=== PATIENT | female | born 1975 | race Caucasian/White ===

== ENCOUNTER 2019-09-03 16:37 | Inpatient (IN) | payer OTHER ==
[~2019-09-03] VITALS: Ht 160 cm; Wt 106.0 kg
--- NOTE | 2019-09-03 16:50 | NUR ---
PATIENT BROUGHT IN BY [facility] WITH CHIEF COMPLAINT OF WHOLE BODY SWELLING WITH RIGHT FLANK PAIN STARTING THIS MORNING. THE PATIENT IS ALERT, ORIENTED, WARM.
[2019-09-03] MEDS ORDERED: PLEASE ENTER ALLERGIES MC SCH (17:00)
[2019-09-03] MEDS ORDERED: KETOROLAC 30 MG/1 ML IVPush ONE (17:00)
[2019-09-03] MEDS ORDERED: ONDANSETRON 2MG/ML, 2ML IVPush ONE (17:00)
[2019-09-03 17:14] LABS: BASOPHILS # (AUTO) 0.11 x10^3/uL (0-0.1); BASOPHILS % (AUTO) 1 % (0-1); EOSINOPHILS # (AUTO) 0.16 x10^3/uL (0-0.4); EOSINOPHILS % (AUTO) 1 % (1-7); LYMPHOCYTES % (AUTO) 18 % (22-44); MD NO; MEAN CORPUSCULAR HEMOGLOBIN 30.3 pg (27.0-34.8); MEAN CORPUSCULAR HGB CONC 32.6 g/dL (32.4-35.8); MEAN CORPUSCULAR VOLUME 93.1 fL (80-100); MEAN PLATELET VOLUME 7.3 fL (7.4-10.4); MONOCYTES # (AUTO) 0.52 x10^3/uL (0.2-0.8); MONOCYTES % (AUTO) 3 % (2-9); NEUTROPHILS # (AUTO) 13.73 x10^3/uL (1.8-6.8); NEUTROPHILS % (AUTO) 78 % (42-75); PLATELET COUNT 378 x10^3/uL (130-400); RED BLOOD COUNT 5.71 x10^6/uL (3.82-5.3); RED CELL DISTRIBUTION WIDTH 13.2 % (9.6-15.2)
[2019-09-03 17:26] LABS: ALANINE AMINOTRANSFERASE 21 U/L (12-78); ANION GAP 9 mmol/L (5-15); CALCIUM 9.1 mg/dL (8.5-10.1); CHLORIDE 110 mmol/L (98-107); CREATININE 1.15 mg/dL (0.55-1.02)
[2019-09-03 17:31] LABS: ALBUMIN 3.3 g/dL (3.4-5.0); ALKALINE PHOSPHATASE 68 U/L (45-117); BILIRUBIN,TOTAL 0.4 mg/dL (0.2-1.0); TOTAL PROTEIN 7.2 g/dL (6.4-8.2)
[2019-09-03] MEDS ORDERED: KETOROLAC 30 MG/1 ML ONE (17:39)
[2019-09-03] MEDS ORDERED: ONDANSETRON 2MG/ML, 2ML ONE ×2 (17:40→21:19)
[2019-09-03] MEDS ORDERED: PHENAZOPYRIDINE 200 MG TABLET ONE (17:52)
[2019-09-03] MEDS ORDERED: PHENAZOPYRIDINE 200 MG TABLET PO ONE (18:00)
[2019-09-03] MEDS ORDERED: SODIUM CHLORIDE 0.9% 1,000ML IVBOLUS ONE (18:00)
[2019-09-03 18:46] LABS: MICROSCOPIC AUTO
--- NOTE | 2019-09-03 18:46 | NUR ---
MEDICATION POSITIVE RELIEF OF DISCOMFORT. ASSISITED AMBULATION TO BATHROOM, NOW RESTING IN BED. CALL LIGHT IN REACH.
--- NOTE | 2019-09-03 18:53 | NUR ---
REPORT OF PT FROM BRISEIDA ROSE AND ASSUMING CARE OF PT AT THIS TIME.
[2019-09-03 19:04] LABS: CULTURE INDICATED? YES
[2019-09-03] MEDS ORDERED: CEFTRIAXONE PMX 1GM/50ML 50 ML ONE (19:10)
--- NOTE | 2019-09-03 19:19 | NUR ---
PT MEDICATED PER JAN. PT TO CT VIA [facility] AT THIS TIME;
[2019-09-03] MEDS ORDERED: CEFTRIAXONE PMX 1GM/50ML 50 ML IV ONE (19:30)
[2019-09-03] MEDS ORDERED: OMNIPAQUE 350 MG/ML, 100ML BOTTLE ONE (19:37)
[2019-09-03] MEDS ORDERED: MIDAZOLAM 1 MG/ML, 2ML ONE (20:36)
[2019-09-03] MEDS ORDERED: FENTANYL PF 250 MCG/5ML ONE (20:36)
--- NOTE | 2019-09-03 20:37 | NUR ---
ATTEMPTED TO START NG TUBE ON PT. PER OR, PT WILL HAVE NG TUBE PLACED IN OR. OR ATTENDANT AT BS TO TAKE PT TO OR AT THIS TIME.
[2019-09-03] MEDS ORDERED: BUPIVACAINE/PF 0.5% ONE (21:18)
[2019-09-03] MEDS ORDERED: DEXAMETHASONE 4 MG/ML, 1ML ONE (21:19)
[2019-09-03] MEDS ORDERED: ROCURONIUM 10MG/ML,5ML ONE (21:19)
[2019-09-03] MEDS ORDERED: PROPOFOL 10 MG/ML, 20ML ONE (21:19)
[2019-09-03] MEDS ORDERED: SUCCINYLCHOLINE 20 MG/ML, 10ML ONE (21:19)
[2019-09-03] MEDS ORDERED: SUGAMMADEX 200 MG/2 ML IVPush ONE (21:22)
[2019-09-03] MEDS ORDERED: BUPIVACAINE/PF 0.5% INFIL ONE (21:28)
[2019-09-03] MEDS ORDERED: HYDROmorphone 1 MG/ML, 1ML VIAL ONE (21:56)
[2019-09-03] MEDS ORDERED: FENTANYL PF 100 MCG/2ML ONE (21:56)
[2019-09-03] MEDS ORDERED: PROMETHAZINE 25 MG/ML, 1ML IV PRN (22:00)
[2019-09-03] MEDS ORDERED: hydrALAzine 20 MG/ML, 1ML IV PRN (22:00)
[2019-09-03] MEDS ORDERED: MEPERIDINE/PF 25MG/ML,1ML IVPush PRN (22:00)
[2019-09-03] MEDS ORDERED: LABETALOL 5MG/ML, 20ML IV PRN (22:00)
[2019-09-03] MEDS ORDERED: ONDANSETRON 2MG/ML, 2ML IV PRN (22:00)
[2019-09-03] MEDS: FENTANYL PF 100 MCG/2ML IV PRN ×2 (22:04→22:11)
[2019-09-03] MEDS: HYDROmorphone 2 MG/ML, 1ML IVPush PRN ×2 (22:07→22:14)
[2019-09-03 23:06] LABS: FREE T4 (FREE THYROXINE) 0.74 ng/dL (0.76-1.46)
[2019-09-03 23:15] VITALS: BP 127/84
[2019-09-03] MEDS ORDERED: LEVO50TA PO (23:15)
[2019-09-03] MEDS ORDERED: CLON0.1T22 PO (23:15)
[2019-09-03] MEDS ORDERED: SERT50TA PO (23:15)
[2019-09-03 23:24] LABS: AMPHETAMINE SCREEN, URINE Negative (Negative); BARBITURATE SCREEN, URINE Negative (Negative); BENZODIAZEPINE SCREEN, URINE Negative (Negative); CANNABINOID SCREEN, URINE Positive (Negative); COCAINE SCREEN, URINE Negative (Negative); METHADONE SCREEN, URINE Negative (Negative); OPIATE SCREEN, URINE Negative (Negative)
[2019-09-04] MEDS ORDERED: ACETAMINOPHEN 325 MG TABLET PO PRN
[2019-09-04] MEDS ORDERED: ONDANSETRON 2MG/ML, 2ML IVPush PRN
[2019-09-04] MEDS ORDERED: LABETALOL 5MG/ML, 20ML IVPush PRN
[2019-09-04] MEDS ORDERED: PROMETHAZINE 25 MG/ML, 1ML IM PRN
[2019-09-04] MEDS ORDERED: CEFTRIAXONE PMX 1GM/50ML 50 ML IV SCH
[2019-09-04 00:01] VITALS: BP 133/85
[2019-09-04] MEDS: PANTOPRAZOLE 40 MG IV IVPush SCH ×2 (01:09→08:01)
[2019-09-04] MEDS: CEFOTETAN PMX 2GM/50ML 50 ML IV SCH ×2 (01:09→13:29)
[2019-09-04] MEDS: morphine SULFATE 10 MG/ML, 1ML IVPush PRN ×2 (02:56→10:41)
[2019-09-04 04:01] VITALS: BP 123/79
[2019-09-04 04:50] LABS: BASOPHILS # (AUTO) 0.01 x10^3/uL (0-0.1); BASOPHILS % (AUTO) 0 % (0-1); EOSINOPHILS # (AUTO) 0.12 x10^3/uL (0-0.4); EOSINOPHILS % (AUTO) 1 % (1-7); LYMPHOCYTES # (AUTO) 1.41 x10^3/uL (1-3.4); LYMPHOCYTES % (AUTO) 8 % (22-44); MD NO; MEAN CORPUSCULAR HEMOGLOBIN 30.5 pg (27.0-34.8); MEAN CORPUSCULAR HGB CONC 32.6 g/dL (32.4-35.8); MEAN CORPUSCULAR VOLUME 93.4 fL (80-100); MEAN PLATELET VOLUME 7.2 fL (7.4-10.4); MONOCYTES # (AUTO) 0.17 x10^3/uL (0.2-0.8); MONOCYTES % (AUTO) 1 % (2-9); NEUTROPHILS # (AUTO) 15.05 x10^3/uL (1.8-6.8); NEUTROPHILS % (AUTO) 90 % (42-75); PLATELET COUNT 387 x10^3/uL (130-400); RED BLOOD COUNT 5.27 x10^6/uL (3.82-5.3); RED CELL DISTRIBUTION WIDTH 13.3 % (9.6-15.2)
[2019-09-04 05:00] LABS: ALBUMIN 2.8 g/dL (3.4-5.0); ANION GAP 9 mmol/L (5-15); CALCIUM 8.2 mg/dL (8.5-10.1); CHLORIDE 110 mmol/L (98-107)
[2019-09-04] MEDS ORDERED: ENALAPRILAT 1.25 MG/ML, 2ML IV PRN (05:00)
[2019-09-04] MEDS ORDERED: KETOROLAC 30 MG/1 ML IVPush PRN (05:00)
[2019-09-04] MEDS ORDERED: DIPHENHYDRAMINE 25 MG CAPSULE PO PRN (05:00)
[2019-09-04] MEDS ORDERED: hydrALAzine 20 MG/ML, 1ML IV PRN (05:00)
[2019-09-04] MEDS ORDERED: DIPHENHYDRAMINE 50 MG/ML, 1ML IVPush PRN (05:00)
[2019-09-04 05:05] LABS: ALANINE AMINOTRANSFERASE 23 U/L (12-78); ALKALINE PHOSPHATASE 55 U/L (45-117); BILIRUBIN,TOTAL 0.3 mg/dL (0.2-1.0); CREATININE 1.37 mg/dL (0.55-1.02); HEMOGLOBIN A1C 6.1 % (4.2-6.3); TOTAL PROTEIN 6.6 g/dL (6.4-8.2)
[2019-09-04 07:46] VITALS: BP 103/67
[2019-09-04] MEDS ORDERED: LACTATED RINGERS 1,000 ML IV ONE (09:00)
[2019-09-04] MEDS: LACTATED RINGERS 1,000 ML IV SCH ×2 (13:29→23:08)
[2019-09-04] MEDS: HEPARIN 5,000 UNITS/ML, 1ML SQ SCH ×2 (13:29→23:07)
[2019-09-04] MEDS: HYDROcodone/APAP 5/325 TABLET PO PRN ×3 (13:29→23:08)
[2019-09-04 14:04] VITALS: BP 134/74
[2019-09-04 19:51] VITALS: BP 129/74
[2019-09-04] MEDS: SERTRALINE 50MG TABLET PO SCH (23:07)
[2019-09-05 01:16] VITALS: BP 118/69
[2019-09-05] MEDS: CEFOTETAN PMX 2GM/50ML 50 ML IV SCH ×2 (01:16→12:51)
[2019-09-05 06:05] LABS: BASOPHILS # (AUTO) 0.02 x10^3/uL (0-0.1); BASOPHILS % (AUTO) 0 % (0-1); EOSINOPHILS # (AUTO) 0.15 x10^3/uL (0-0.4); EOSINOPHILS % (AUTO) 1 % (1-7); LYMPHOCYTES # (AUTO) 1.89 x10^3/uL (1-3.4); LYMPHOCYTES % (AUTO) 14 % (22-44); MD NO; MEAN CORPUSCULAR HEMOGLOBIN 30.9 pg (27.0-34.8); MEAN CORPUSCULAR HGB CONC 33.2 g/dL (32.4-35.8); MEAN PLATELET VOLUME 7.2 fL (7.4-10.4); MONOCYTES # (AUTO) 0.83 x10^3/uL (0.2-0.8); MONOCYTES % (AUTO) 6 % (2-9); NEUTROPHILS # (AUTO) 11.05 x10^3/uL (1.8-6.8); NEUTROPHILS % (AUTO) 79 % (42-75); PLATELET COUNT 332 x10^3/uL (130-400); RED BLOOD COUNT 3.84 x10^6/uL (3.82-5.3); RED CELL DISTRIBUTION WIDTH 13.7 % (9.6-15.2)
[2019-09-05 06:14] LABS: ANION GAP 7 mmol/L (5-15); CALCIUM 8.1 mg/dL (8.5-10.1); CHLORIDE 108 mmol/L (98-107)
[2019-09-05 06:17] LABS: CREATININE 1.11 mg/dL (0.55-1.02)
[2019-09-05 06:51] VITALS: BP 98/59
[2019-09-05] MEDS: HYDROcodone/APAP 5/325 TABLET PO PRN ×3 (08:33→21:20)
[2019-09-05] MEDS: LACTATED RINGERS 1,000 ML IV SCH ×2 (08:33→20:39)
[2019-09-05] MEDS: HEPARIN 5,000 UNITS/ML, 1ML SQ SCH ×3 (08:33→20:46)
[2019-09-05] MEDS: PANTOPRAZOLE 40 MG IV IVPush SCH (08:33)
[2019-09-05 13:10] VITALS: BP 118/71
[2019-09-05 14:13] VITALS: BP 117/69
[2019-09-05] MEDS ORDERED: PROPOFOL 10 MG/ML, 20ML ONE (15:28)
[2019-09-05 19:47] VITALS: BP 149/90
[2019-09-05] MEDS: SERTRALINE 50MG TABLET PO SCH (20:46)
[2019-09-06] MEDS: CEFOTETAN PMX 2GM/50ML 50 ML IV SCH ×2 (00:55→13:31)
[2019-09-06 00:59] VITALS: BP 127/81
[2019-09-06] MEDS: HYDROcodone/APAP 5/325 TABLET PO PRN ×3 (03:46→20:51)
[2019-09-06 04:56] VITALS: BP 133/84
[2019-09-06] MEDS: LACTATED RINGERS 1,000 ML IV SCH (05:00)
[2019-09-06 05:43] LABS: ANION GAP 4 mmol/L (5-15); CALCIUM 7.9 mg/dL (8.5-10.1); CHLORIDE 108 mmol/L (98-107)
[2019-09-06 05:45] LABS: BASOPHILS # (AUTO) 0.03 x10^3/uL (0-0.1); BASOPHILS % (AUTO) 0 % (0-1); EOSINOPHILS # (AUTO) 0.01 x10^3/uL (0-0.4); EOSINOPHILS % (AUTO) 0 % (1-7); LYMPHOCYTES # (AUTO) 2.95 x10^3/uL (1-3.4); LYMPHOCYTES % (AUTO) 28 % (22-44); MD NO; MEAN CORPUSCULAR HEMOGLOBIN 30.9 pg (27.0-34.8); MEAN CORPUSCULAR VOLUME 93.8 fL (80-100); MONOCYTES % (AUTO) 7 % (2-9); NEUTROPHILS # (AUTO) 6.75 x10^3/uL (1.8-6.8); NEUTROPHILS % (AUTO) 65 % (42-75); PLATELET COUNT 275 x10^3/uL (130-400); RED BLOOD COUNT 3.59 x10^6/uL (3.82-5.3); RED CELL DISTRIBUTION WIDTH 13.6 % (9.6-15.2)
[2019-09-06] MEDS: HEPARIN 5,000 UNITS/ML, 1ML SQ SCH ×3 (05:59→20:51)
[2019-09-06 07:13] VITALS: BP 129/77
[2019-09-06 08:15] VITALS: BP 126/81
[2019-09-06] MEDS: PANTOPRAZOLE 40 MG IV IVPush SCH (08:25)
[2019-09-06 13:48] VITALS: BP 107/69
[2019-09-06 19:34] VITALS: BP 128/81
[2019-09-06] MEDS: SERTRALINE 50MG TABLET PO SCH (20:51)
[2019-09-07] MEDS: CEFOTETAN PMX 2GM/50ML 50 ML IV SCH ×2 (01:23→13:30)
[2019-09-07 02:00] VITALS: BP 117/72
[2019-09-07] MEDS: HYDROcodone/APAP 5/325 TABLET PO PRN ×2 (03:42→09:28)
[2019-09-07] MEDS: HEPARIN 5,000 UNITS/ML, 1ML SQ SCH ×2 (04:47→13:30)
[2019-09-07 05:06] LABS: ANION GAP 6 mmol/L (5-15); CALCIUM 8.2 mg/dL (8.5-10.1); CHLORIDE 106 mmol/L (98-107); CREATININE 1.28 mg/dL (0.55-1.02)
[2019-09-07 05:12] LABS: BASOPHILS # (AUTO) 0.02 x10^3/uL (0-0.1); BASOPHILS % (AUTO) 0 % (0-1); EOSINOPHILS # (AUTO) 0.11 x10^3/uL (0-0.4); EOSINOPHILS % (AUTO) 1 % (1-7); LYMPHOCYTES # (AUTO) 3.15 x10^3/uL (1-3.4); LYMPHOCYTES % (AUTO) 37 % (22-44); MD NO; MEAN CORPUSCULAR HEMOGLOBIN 30.7 pg (27.0-34.8); MEAN CORPUSCULAR HGB CONC 33.3 g/dL (32.4-35.8); MEAN CORPUSCULAR VOLUME 92.1 fL (80-100); MEAN PLATELET VOLUME 6.9 fL (7.4-10.4); MONOCYTES # (AUTO) 0.41 x10^3/uL (0.2-0.8); MONOCYTES % (AUTO) 5 % (2-9); NEUTROPHILS # (AUTO) 4.87 x10^3/uL (1.8-6.8); NEUTROPHILS % (AUTO) 57 % (42-75); PLATELET COUNT 331 x10^3/uL (130-400); RED BLOOD COUNT 3.94 x10^6/uL (3.82-5.3); RED CELL DISTRIBUTION WIDTH 13.6 % (9.6-15.2)
[2019-09-07] MEDS ORDERED: PANTOPROZOLE 40MG TABLET PO SCH (06:00)
[2019-09-07 08:08] VITALS: BP 135/84
[2019-09-07 13:47] VITALS: BP 132/83
[2019-09-07] MEDS ORDERED: CIPR500T87 PO (16:20)
[2019-09-07] MEDS ORDERED: METR500T PO (16:20)
== END 2019-09-07 18:00 | disposition home or self-care (01) | DRG 853 ==
LOC: ED 19:37 → EDIP 20:29 → 4NE 22:45
PROVIDERS: ADMIT Surgery; ATTEND Surgery
PROC: 0WJG0ZZ Inspection of Peritoneal Cavity, Open Approach (ICD-10-PCS; principal; 2019-09-03 20:30)
PROC: 0D9670Z Drainage of Stomach with Drainage Device, Via Natural or Artificial Opening (ICD-10-PCS; 2019-09-04)
PROC: 0DB98ZX Excision of Duodenum, Via Natural or Artificial Opening Endoscopic, Diagnostic (ICD-10-PCS; 2019-09-05)
PROC: 0DBA8ZX Excision of Jejunum, Via Natural or Artificial Opening Endoscopic, Diagnostic (ICD-10-PCS; 2019-09-05)
DX: A41.9 Sepsis, unspecified organism (principal); K65.9 Peritonitis, unspecified; N17.0 Acute kidney failure with tubular necrosis; Z68.41 Body mass index [BMI] 40.0-44.9, adult; E87.2 Acidosis; N39.0 Urinary tract infection, site not specified; D75.1 Secondary polycythemia; E03.9 Hypothyroidism, unspecified; E66.01 Morbid (severe) obesity due to excess calories; E86.0 Dehydration; F12.10 Cannabis abuse, uncomplicated; N18.9 Chronic kidney disease, unspecified; F43.10 Post-traumatic stress disorder, unspecified; G89.29 Other chronic pain; J45.20 Mild intermittent asthma, uncomplicated; K21.0 Gastro-esophageal reflux disease with esophagitis; K52.9 Noninfective gastroenteritis and colitis, unspecified; Z80.3 Family history of malignant neoplasm of breast; Z80.41 Family history of malignant neoplasm of ovary
CPT/HCPCS: 36415; 74018; 74250; 84145; S0020; 74177; 80048; 80053; 80307; 81001; 83036; 83605; 83690; 84439; 84443; 84703; 85025; 86160; 87040; 87086; 88305; G0378; J0696; J1100; J1170; J1644; J1885; J2250; J2405; J2704; J3010; Q9967; C9113; J0330; J2270; J3490; J7030; J7120

== ENCOUNTER 2021-03-29 09:50 | Emergency (ER) | payer MEDICAID ==
[~2021-03-29] VITALS: Ht 160 cm; Wt 96.9 kg
[~2021-03-29 09:50] MED LIST: CIPR500T87 PO; CLON0.1T22 PO; LEVO50TA PO; METR500T PO; SERT50TA PO
[2021-03-29 10:52] LABS: BASOPHILS % (AUTO) 1 % (0-1); EOSINOPHILS % (AUTO) 1 % (1-7); LYMPHOCYTES % (AUTO) 33 % (22-44); MEAN CORPUSCULAR HEMOGLOBIN 31.2 pg (27.0-34.8); MEAN CORPUSCULAR HGB CONC 34.3 g/dL (32.4-35.8); MEAN PLATELET VOLUME 6.9 fL (7.4-10.4); MONOCYTES % (AUTO) 6 % (2-9); NEUTROPHILS % (AUTO) 59 % (42-75); PLATELET COUNT 381 x10^3/uL (130-400); RED BLOOD COUNT 4.87 x10^6/uL (3.82-5.3)
[2021-03-29 10:55] LABS: MD NO
[2021-03-29 11:04] LABS: CHLORIDE 110 mmol/L (98-107)
[2021-03-29 11:10] LABS: ALANINE AMINOTRANSFERASE 35 U/L (12-78); ALKALINE PHOSPHATASE 80 U/L (45-117); BILIRUBIN,TOTAL 0.3 mg/dL (0.2-1.0); CREATININE 1.04 mg/dL (0.55-1.02); TOTAL PROTEIN 8.1 g/dL (6.4-8.2)
[2021-03-29 11:22] LABS: ANION GAP 7 mmol/L (5-15)
--- NOTE | 2021-03-29 11:46 | NUR ---
SKIDDER: PT TO ROOM FROM THU RANDOL[facility]
[2021-03-29] MEDS ORDERED: ONDANSETRON 2MG/ML, 2ML ONE (12:10)
[2021-03-29] MEDS ORDERED: FAMOTIDINE 20 MG/2 ML ONE (12:10)
[2021-03-29 12:17] LABS: MICROSCOPIC AUTO
[2021-03-29] MEDS ORDERED: SODIUM CHLORIDE 0.9% 1,000ML IVBOLUS ONE (12:30)
[2021-03-29] MEDS ORDERED: FAMOTIDINE 20 MG/2 ML IVPush ONE (12:30)
[2021-03-29] MEDS ORDERED: ONDANSETRON 2MG/ML, 2ML IVPush ONE (12:30)
[2021-03-29 13:02] VITALS: BP 106/62
--- NOTE | 2021-03-29 13:03 | NUR ---
PT HAS CO DIARRHEA AND NAUSEA, X3 DAYS. MID/LOWER ABDOMINAL PAIN. PT BACK FROM BATHROOM WITH STEAD GAIT TO BED. VSS. DALJIT. AWAITING X RAY READ
[2021-03-29] MEDS ORDERED: PROMETHAZINE 25 MG/ML, 1ML ONE (13:27)
[2021-03-29] MEDS ORDERED: PROMETHAZINE 25 MG/ML, 1ML IM ONE (13:30)
--- NOTE | 2021-03-29 14:03 | NUR ---
MEAL BREAK RN: Pt d/c to home. No IV site present, states primary RN already removed it. Pt without questions after instructions given and ambulatory out of dept.
== END 2021-03-29 14:14 | disposition home or self-care (01) ==
LOC: ED 11:22
DX: R19.7 Diarrhea, unspecified (principal); R11.0 Nausea; E03.9 Hypothyroidism, unspecified; J45.909 Unspecified asthma, uncomplicated
CPT/HCPCS: 36415; 74021; 80053; 81001; 83605; 83690; 84703; 85025; 87086; 96372; 96374; 96375; 99284; J2405; J2550; J7030

== ENCOUNTER 2021-07-21 14:27 | Emergency (ER) | payer MEDICAID ==
[~2021-07-21] VITALS: Ht 160 cm; Wt 90.2 kg
[2021-07-21 14:30] VITALS: BP 124/94
[2021-07-21 14:56] LABS: MICROSCOPIC AUTO
[2021-07-21 15:51] LABS: BASOPHILS % (AUTO) 1 % (0-1); EOSINOPHILS % (AUTO) 1 % (1-7); LYMPHOCYTES % (AUTO) 32 % (22-44); MEAN CORPUSCULAR HEMOGLOBIN 29.9 pg (27.0-34.8); MEAN CORPUSCULAR HGB CONC 33.4 g/dL (32.4-35.8); MEAN PLATELET VOLUME 7.1 fL (7.4-10.4); MONOCYTES % (AUTO) 7 % (2-9); NEUTROPHILS % (AUTO) 61 % (42-75); PLATELET COUNT 390 x10^3/uL (130-400); RED BLOOD COUNT 5.19 x10^6/uL (3.82-5.3)
[2021-07-21 16:00] LABS: ALANINE AMINOTRANSFERASE 50 U/L (12-78); ALBUMIN 3.7 g/dL (3.4-5.0); ANION GAP 7 mmol/L (5-15); CALCIUM 9.1 mg/dL (8.5-10.1); CHLORIDE 105 mmol/L (98-107); CREATININE 1.02 mg/dL (0.55-1.02)
[2021-07-21 16:04] LABS: ALKALINE PHOSPHATASE 89 U/L (45-117); BILIRUBIN,TOTAL 0.4 mg/dL (0.2-1.0); TOTAL PROTEIN 8.5 g/dL (6.4-8.2)
== END 2021-07-21 17:37 | disposition left against medical advice (07) ==
LOC: ED 15:00
DX: R10.11 Right upper quadrant pain (principal)
CPT/HCPCS: 36415; 76700; 80053; 81001; 83690; 84703; 85025; 87086; 99284